=== PATIENT | female | born 1975 | race Caucasian/White ===

== ENCOUNTER 2018-11-07 11:30 | Inpatient (IN) | payer OTHER | END 2018-11-11 17:10 | disposition home or self-care (01) | LOC: 4TH 11:30 ==

== ENCOUNTER 2018-11-25 08:48 | Outpatient (CLI) | payer OTHER ==
[~2018-11-25] VITALS: Ht 175.3 cm; Wt 103.3 kg
[~2018-11-25 08:48] MED LIST: CALC-823 PO; CEPH500C PO; CYAN-41 PO; CYAN1SPR2; DAPT500V3 IV; MULT-974 PO
[2018-11-25] MEDS ORDERED: DAPTOmycin 500 MG/NS 50 ML IVPB IV ONE ×2 (09:30)
[2018-11-25 10:25] VITALS: BP 136/77
== END 2018-11-25 10:25 | disposition home or self-care (01) ==
LOC: SDC 08:48
PROVIDERS: ATTEND Podiatrist
DX: Z51.81 Encounter for therapeutic drug level monitoring (principal)
CPT/HCPCS: 96365